=== PATIENT | female | born 1960 | race Caucasian/White ===

== ENCOUNTER 2018-12-04 15:09 | Emergency (ER) | payer OTHER ==
[~2018-12-04] VITALS: Ht 154.9 cm; Wt 68.0 kg
[2018-12-04 15:57] LABS: BASOPHIL % 0.3 % (0-2); PLATELET COUNT 219 x10^3mcL (130-400)
[2018-12-04 16:18] LABS: CALCIUM 9.6 mg/dL (8.5-10.1); CHLORIDE SERUM 102 mmol/L (98-107); CREATININE SERUM 0.9 mg/dL (0.6-1.0); GFR1 > 60 mL/min; GLUCOSE SERUM 97 mg/dL (74-106); POTASSIUM SERUM 3.6 mmol/L (3.5-5.1); SODIUM SERUM 137 mmol/L (136-145)
[2018-12-04 16:23] LABS: ALBUMIN 3.6 g/dL (3.4-5.0); ALKALINE PHOSPHATASE 83 U/L (46-116); ALT/SGPT 23 U/L (14-59); AST/SGOT 15 U/L (15-37); BILIRUBIN TOTAL 0.25 mg/dL (0.20-1.00); TOTAL PROTEIN, SERUM 7.8 g/dL (6.4-8.2)
[2018-12-04 17:57] VITALS: BP 155/76
== END 2018-12-04 17:58 | disposition home or self-care (01) ==
LOC: ED 15:09
PROVIDERS: Emergency Medicine
DX: J68.9 Unspecified respiratory condition due to chemicals, gases, fumes and vapors (principal); I10 Essential (primary) hypertension; Z98.890 Other specified postprocedural states
CPT/HCPCS: J3490; Q0092